=== PATIENT | female | born 1995 | race Caucasian/White ===

== ENCOUNTER → 2016-09-01 | Outpatient (CLI) | payer BC | LOC: RAD 15:23 | PROVIDERS: ATTEND Physician Assistant | DX: M54.5 Low back pain (principal); Z87.442 Personal history of urinary calculi | CPT/HCPCS: 74176; 76380 ==

== ENCOUNTER 2019-10-14 14:50 | Emergency (ER) | payer BC ==
--- NOTE | 2019-10-14 15:38 | ER Document Report ---
ED Medical Screen (RME) - General Chief Complaint: Abdominal Pain Stated Complaint: LOWER ABDOMINAL PAIN Time Seen by Provider: 10/14/19 15:28 Primary Care Provider: BETH ESPINOZA FNP-C [Primary Care Provider] - Follow up as needed Information source: Patient Notes: This 24-year-old female presented emergency room today with pain radiating from her right flank down to her groin which is been ongoing for about 3 hours this morning. TRAVEL OUTSIDE OF THE [place] IN LAST 30 DAYS: No - Related Data Allergies/Adverse Reactions: No Known Allergies Allergy (Verified 10/14/19 15:26) Past Medical History - Social History Frequency of alcohol use: Occasional Drug Abuse: None Psychiatric Medical History: Reports: Hx Attention Deficit Hyperactivity Disorder Physical Exam - Vital signs Vitals: Temp Pulse Resp BP Pulse Ox 98.8 F 120 H 16 132/88 H 99 10/14/19 14:56 10/14/19 14:56 10/14/19 14:56 10/14/19 14:56 10/14/19 14:56 Course - Vital Signs Vital signs: Temp Pulse Resp BP Pulse Ox 98.8 F 120 H 16 132/88 H 99 10/14/19 15:26 10/14/19 14:56 10/14/19 14:56 10/14/19 14:56 10/14/19 14:56 Doctor's Discharge - Discharge Referrals: BETH ESPINOZA FNP-C [Primary Care Provider] - Follow up as needed
[2019-10-14 16:10] LABS: ABSOLUTE EOSINOPHILS # (AUTO) 0.1 10^3/uL (0.0-0.6); ABSOLUTE LYMPHOCYTES (AUTO) 1.4 10^3/uL (0.5-4.7); ABSOLUTE MONOCYTES (AUTO) 0.6 10^3/uL (0.1-1.4); ABSOLUTE NEUT (AUTO) 3.9 10^3/uL (1.7-8.2); BASOPHILS % (AUTO) 0.2 % (0-2); EOSINOPHILS % (AUTO) 1.5 % (0-6); HEMATOCRIT 41.6 % (36.0-47.0); HEMOGLOBIN 14.1 g/dL (12.0-15.5); LYMPHOCYTES % (AUTO) 22.7 % (13-45); MEAN CORPUSCULAR HEMOGLOBIN 33.4 pg (27.0-33.4); MEAN CORPUSCULAR HGB CONC 33.9 g/dL (32.0-36.0); MEAN CORPUSCULAR VOLUME 99 fl (80-97); PLATELET COUNT 254 10^3/uL (150-450); RED BLOOD COUNT 4.23 10^6/uL (3.72-5.28); RED CELL DISTRIBUTION WIDTH 13.2 % (11.5-14.0); SEGMENTED NEUTROPHILS % (AUTO) 65.6 % (42-78); TOTAL CELLS COUNTED % (AUTO) 100 %
[2019-10-14 16:14] LABS: APPEARANCE,URINE SLIGHTLY-CLOUDY; BILIRUBIN,URINE NEGATIVE (NEGATIVE); COLOR,URINE YELLOW; GLUCOSE, URINE NEGATIVE (NEGATIVE); KETONES,URINE NEGATIVE (NEGATIVE); LEUKOCYTE ESTERASE,URINE NEGATIVE (NEGATIVE); NITRITE,URINE NEGATIVE (NEGATIVE); PROTEIN,URINE NEGATIVE (NEGATIVE); URINE SPECIFIC GRAVITY 1.026; UROBILINOGEN,URINE NEGATIVE mg/dL (<2.0)
[2019-10-14 16:30] LABS: ALBUMIN 4.1 g/dL (3.5-5.0); ALKALINE PHOSPHATASE 83 U/L (38-126); ANION GAP 6 (5-19); ASPARTATE AMINO TRANSFERASE 34 U/L (14-36); BILIRUBIN,TOTAL 0.3 mg/dL (0.2-1.3); BLOOD UREA NITROGEN 18 mg/dL (7-20); CALCIUM 9.3 mg/dL (8.4-10.2); CARBON DIOXIDE 26 mmol/L (22-30); CHLORIDE 105 mmol/L (98-107); GLUCOSE 83 mg/dL (75-110); POTASSIUM 4.5 mmol/L (3.6-5.0); TOTAL PROTEIN 7.2 g/dL (6.3-8.2)
--- NOTE | 2019-10-14 16:37 | RADIOLOGY REPORT (SQ) ---
EXAM DESCRIPTION: U/S NON OB PEL TV W/DOPPLER IMAGES COMPLETED DATE/TIME: 10/14/2019 4:29 pm REASON FOR STUDY: pain COMPARISON: None. TECHNIQUE: Dynamic and static grayscale images acquired of the pelvis via transvaginal approach and recorded on PACS. Additional selected color Doppler and spectral images recorded. LIMITATIONS: None. FINDINGS: UTERUS: Contour normal. No mass. ENDOMETRIAL STRIPE: No focal or generalized thickening. No masses. CERVIX: No nabothian cysts. RIGHT OVARY AND DOPPLER: Normal size. No worrisome masses. Normal arterial vascular flow without evid ence for torsion. LEFT OVARY AND DOPPLER: Normal size. No worrisome masses. Normal arterial vascular flow without evide nce for torsion. FREE FLUID: None noted. OTHER: No other significant finding. MEASUREMENTS: UTERUS: 7.4 x 5.8 x 3.7 cm ENDOMETRIAL STRIPE: 0.6 cm RIGHT OVARY: 2.6 x 1.8 x 1.8 cm LEFT OVARY: 3.0 x 1.4 x 1.6 cm IMPRESSION: NORMAL TRANSVAGINAL PELVIC ULTRASOUND. TECHNICAL DOCUMENTATION: JOB ID: [id number] 2010 [employer]- All Rights Reserved Rev-09/06 Reading location - IP/workstation name: [email or web address]
--- NOTE | 2019-10-14 17:13 | RADIOLOGY REPORT (SQ) ---
EXAM DESCRIPTION: CT ABD/PELVIS NO ORAL OR IV IMAGES COMPLETED DATE/TIME: 10/14/2019 5:00 pm REASON FOR STUDY: pain COMPARISON: 09/01/2016 and 10/14/2019 TECHNIQUE: CT scan of the abdomen and pelvis performed without intravenous or oral contrast. Images reviewed with lung, soft tissue, and bone windows. Reconstructed coronal and sagittal MPR images revi ewed. All images stored on PACS. All CT scanners at this facility use dose modulation, iterative reconstruction, and/or weight based d osing when appropriate to reduce radiation dose to as low as reasonably achievable (ALARA). [facility]: Dose Right [facility]: CareDose [facility]: Dose Right [facility]: Teradose 4D [facility]: [place]jo RADIATION DOSE: mGy. LIMITATIONS: None. FINDINGS: LOWER CHEST: No significant findings. No nodules or infiltrates. NON-CONTRASTED LIVER, SPLEEN, ADRENALS: Evaluation limited by lack of IV contrast. No identified sign ificant masses. PANCREAS: No masses. No peripancreatic inflammatory changes. GALLBLADDER: No identified stones by CT criteria. No inflammatory changes to suggest cholecystitis. RIGHT KIDNEY AND URETER: No suspicious masses. Assessment limited by lack of IV contrast. A punctat e nonobstructing nephrolith seen within the superior pole. No hydronephrosis or hydroureter. LEFT KIDNEY AND URETER: No suspicious masses. Assessment limited by lack of IV contrast. No signifi cant calcifications. No hydronephrosis or hydroureter. AORTA AND RETROPERITONEUM: No aneurysm. No retroperitoneal masses or adenopathy. BOWEL AND PERITONEAL CAVITY: No obvious masses or inflammatory changes. No free fluid. APPENDIX: Normal. PELVIS, BLADDER, AND ABDOMINAL WALL:No abnormal masses. No free fluid. Bladder normal. BONES: No significant findings. OTHER: No other significant finding. IMPRESSION: NO SIGNIFICANT OR ACUTE PROCESS IN THE ABDOMEN OR PELVIS. COMMENT: Quality ID # [id number]: Final reports with documentation of one or more dose reduction techniques (e.g., Automated exposure control, adjustment of the mA and/or kV according to patient size, use of iterative reconstruction technique) TECHNICAL DOCUMENTATION: JOB ID: [id number] 2010 [employer]- All Rights Reserved Reading location - IP/workstation name: [email or web address]
--- NOTE | 2019-10-14 17:30 | ER Document Report ---
ED GI/ - General Chief Complaint: Abdominal Pain Stated Complaint: LOWER ABDOMINAL PAIN Time Seen by Provider: 10/14/19 15:28 Primary Care Provider: BETH ESPINOZA FNP-C [Primary Care Provider] - Follow up as needed Mode of Arrival: Ambulatory Information source: Patient Notes: Patient presents complaining of right lower pelvic tenderness that radiates into the vagina. Patient states pain started today. Patient states symptoms started around noon and she went to an urgent care and received a Toradol injection around 2 PM that initially helped her pain. Patient states the pain started to return which prompted her visit here. Patient denies any fever, nausea or vomiting. Patient denies any urinary symptoms. TRAVEL OUTSIDE OF THE [place] IN LAST 30 DAYS: No - HPI Patient complains to provider of: Pelvic pain, Vaginal bleeding. 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 denies: Fever EENT: No symptoms reported Cardiovascular: No symptoms reported. denies: Dizziness Respiratory: No symptoms reported. denies: Cough, Short of breath Gastrointestinal: Abdominal pain. denies: Vomiting Genitourinary: No symptoms reported. denies: Dysuria Female Genitourinary: Vaginal bleeding Musculoskeletal: No symptoms reported Skin: No symptoms reported Hematologic/Lymphatic: No symptoms reported Neurological/Psychological: No symptoms reported Physical Exam - Vital signs Vitals: Temp Pulse Resp BP Pulse Ox 98.8 F 120 H 16 132/88 H 99 10/14/19 14:56 10/14/19 14:56 10/14/19 14:56 10/14/19 14:56 10/14/19 14:56 - General General appearance: Appears well, Alert In distress: None - HEENT Head: Normocephalic, Atraumatic Eyes: Normal Conjunctiva: Normal Nasal: Normal Mouth/Lips: Normal Mucous membranes: Normal Neck: Normal, Supple. No: Lymphadenopathy - Respiratory Respiratory status: No respiratory distress Chest status: Nontender Breath sounds: Normal. No: Rales, Rhonchi, Stridor, Wheezing Chest palpation: Normal - Cardiovascular Rhythm: Tachycardia Heart sounds: S1 appreciated, S2 appreciated Murmur: No - Abdominal Inspection: Normal Distension: No distension Bowel sounds: Normal Tenderness: Tender - Right lower pelvic tenderness. No: McBurney's point, Robles's sign Organomegaly: No organomegaly - Genitourinary External exam: Normal Speculum exam: Cervix closed Vaginal bleeding: Mild Bimanuel exam: Adnexal tenderness - right. No: Cervical motion tender Notes: GHAZAL Jones as standby - Back Back: Normal, Nontender. No: CVA tenderness - Extremities General upper extremity: Normal inspection, Normal strength General lower extremity: Normal inspection, Normal strength - Neurological Neuro grossly intact: Yes Cognition: Normal Cheriton Coma Scale Eye Opening: Spontaneous Kimber Coma Scale Verbal: Oriented Cheriton Coma Scale Motor: Obeys Commands Cheriton Coma Scale Total: 15 - Psychological Associated symptoms: Normal affect, Normal mood - Skin Skin Temperature: Warm Skin Moisture: Dry Skin Color: Normal Course - Re-evaluation Re-evalutation: 10/14/19 19:03 Patient diagnostic evaluation reviewed, patient without any fever or leukocytosis. No evidence of UTI. CT scan reviewed, no concern for any obstructive uropathy, appendicitis or inflammatory bowel disorder. Ultrasound reviewed, no evidence of ovarian cyst or torsion. On pelvic examination, patient did test positive for vaginal candidiasis. Suspect likely dysmenorrhea at this time. Patient presents with abdominal pain without signs of peritonitis or other life-threatening or serious etiology. Patient appears stable for discharge and has been instructed to return immediately if the symptoms worsen in any way. - Vital Signs Vital signs: Temp Pulse Resp BP Pulse Ox 97.9 F 89 16 129/58 H 100 10/14/19 19:16 10/14/19 19:16 10/14/19 19:16 10/14/19 19:16 10/14/19 19:16 - Laboratory Result Diagrams: 10/14/19 15:50 10/14/19 15:50 Laboratory results interpreted by me: 10/14/19 10/14/19 10/14/19 15:40 15:50 15:50 MCV 99 H ALT 42 H Urine Blood SMALL H 10/14/19 19:03 Labs- All tests 24 hr 10/14/19 10/14/19 10/14/19 15:40 15:50 15:50 WBC 6.0 RBC 4.23 Hgb 14.1 Hct 41.6 MCV 99 H MCH 33.4 MCHC 33.9 RDW 13.2 Plt Count 254 Lymph % (Auto) 22.7 Zapata % (Auto) 10.0 Eos % (Auto) 1.5 Baso % (Auto) 0.2 Absolute Neuts (auto) 3.9 Absolute Lymphs (auto) 1.4 Absolute Monos (auto) 0.6 Absolute Eos (auto) 0.1 Absolute Basos (auto) 0.0 Seg Neutrophils % 65.6 Sodium 137.0 Potassium 4.5 Chloride 105 Carbon Dioxide 26 Anion Gap 6 BUN 18 Creatinine 0.75 Est GFR ( Amer) > 60 Est GFR (MDRD) Non-Af > 60 Glucose 83 Calcium 9.3 Total Bilirubin 0.3 Direct Bilirubin 0.0 Neonat Total Bilirubin Not Reportable Neonat Direct Bilirubin Not Reportable Neonat Indirect Bili Not Reportable AST 34 ALT 42 H Alkaline Phosphatase 83 Total Protein 7.2 Albumin 4.1 Lipase 109.7 Beta HCG, Quant < 2.39 Total Beta HCG NEGATIVE Urine Color YELLOW Urine Appearance SLIGHTLY-CLOUDY Urine pH 5.0 Ur Specific Mcgrann 1.026 Urine Protein NEGATIVE Urine Glucose (UA) NEGATIVE Urine Ketones NEGATIVE Urine Blood SMALL H Urine Nitrite NEGATIVE Urine Bilirubin NEGATIVE Urine Urobilinogen NEGATIVE Ur Leukocyte Esterase NEGATIVE Urine WBC (Auto) 2 Urine RBC (Auto) 3 U Hyaline Cast (Auto) 9 Urine Bacteria (Auto) TRACE Squamous Epi Cells Auto 1 Urine Mucus (Auto) MANY Urine Ascorbic Acid NEGATIVE Trichomonas (Wet Prep) Vaginal WBC Vaginal RBC Vaginal Yeast 10/14/19 18:30 WBC RBC Hgb Hct MCV MCH MCHC RDW Plt Count Lymph % (Auto) Zapata % (Auto) Eos % (Auto) Baso % (Auto) Absolute Neuts (auto) Absolute Lymphs (auto) Absolute Monos (auto) Absolute Eos (auto) Absolute Basos (auto) Seg Neutrophils % Sodium Potassium Chloride Carbon Dioxide Anion Gap BUN Creatinine Est GFR ( Amer) Est GFR (MDRD) Non-Af Glucose Calcium Total Bilirubin Direct Bilirubin Neonat Total Bilirubin Neonat Direct Bilirubin Neonat Indirect Bili AST ALT Alkaline Phosphatase Total Protein Albumin Lipase Beta HCG, Quant Total Beta HCG Urine Color Urine Appearance Urine pH Ur Specific Mcgrann Urine Protein Urine Glucose (UA) Urine Ketones Urine Blood Urine Nitrite Urine Bilirubin Urine Urobilinogen Ur Leukocyte Esterase Urine WBC (Auto) Urine RBC (Auto) U Hyaline Cast (Auto) Urine Bacteria (Auto) Squamous Epi Cells Auto Urine Mucus (Auto) Urine Ascorbic Acid Trichomonas (Wet Prep) NO TRICHOMONAS SEEN Vaginal WBC NO WBCS SEEN Vaginal RBC RARE RBCS SEEN Vaginal Yeast BUDDING YEAST SEEN - Diagnostic Test Radiology reviewed: Reports reviewed Discharge - Discharge Clinical Impression: Vaginal candidiasis, Dysmenorrhea, Pelvic pain Condition: Stable Disposition: HOME, SELF-CARE Instructions: Anti-Inflammatory Medication ([facility]), Dysmenorrhea ([facility]), Pelvic Pain ([facility]), Vaginal Yeast Infection ([facility]) Additional Instructions: Return immediately for any new or worsening symptoms Followup with your primary care provider, call tomorrow to make a followup appointment Prescriptions: Naproxen [Naprosyn 250 Nmg Tablet] 1 tab PO BID #14 tablet Forms: Return to Work Referrals: BETH ESPINOZA FNPGeovannyC [Primary Care Provider] - Follow up as needed
[2019-10-14 19:01] LABS: RBCS (WET MOUNT) RARE RBCS SEEN; T.VAGINALIS (WET MOUNT) NO TRICHOMONAS SEEN; WBCS (WET MOUNT) NO WBCS SEEN; YEAST (WET MOUNT) BUDDING YEAST SEEN
[2019-10-14] MEDS ORDERED: ACETAMINOPHEN 325 MG TABLET PO ONE (19:02)
[2019-10-14] MEDS ORDERED: FLUCONAZOLE 100 MG TABLET PO ONE (19:03)
[2019-10-14 19:18] VITALS: BP 129/58
[2019-10-14 21:04] LABS: CHLAM PCR NOT DETECTED (NOT DETECT)
== END 2019-10-14 19:16 | disposition home or self-care (01) ==
LOC: ER 14:50
DX: N94.6 Dysmenorrhea, unspecified (principal); B37.3 Candidiasis of vulva and vagina; R10.2 Pelvic and perineal pain; R10.30 Lower abdominal pain, unspecified
CPT/HCPCS: 36415; 74176; 76830; 80053; 81001; 83690; 84702; 85025; 87210; 87491; 87591; 93976; 99284